=== PATIENT | female | born 1985 | race Caucasian/White ===

== ENCOUNTER 2024-09-19 09:53 | Emergency (ER) | payer OTHER, SELFPAY ==
[2024-09-19 10:04] VITALS: BP 124/93
[2024-09-19 10:50] VITALS: BP 151/86
[2024-09-19 11:00] VITALS: BP 147/90
[2024-09-19 11:22] LABS: HCG, Serum Qualitative Screen Negative
--- NOTE | 2024-09-19 11:23 | ED.GENMED ---
History of Present Illness
General
Chief Complaint: Abdominal Pain
Source: patient and spouse
Exam Limitations: none
Time Seen by Provider: 09/19/24 10:38
Nursing documentation reviewed up to this point in time: agreed with
History of Present Illness
History of Present Illness:
39-year-old female with a past medical history of hypertension, hyperlipidemia, GERD, prior surgical history of hysterectomy who presents to the emergency department for evaluation of abdominal pain. Patient reports symptoms started yesterday
evening and they have been constant since that time. She reports crampy pain in the lower abdomen that is consistent, somewhat worse on the left side. She reports associated diarrhea. She says that this morning had some episodes of bright red
blood per rectum. She has mild nausea no vomiting. No fever. She denies UTI symptoms. She is status post hysterectomy no vaginal bleeding. She says that last night when she was on the toilet and passing large liquid stool she had an episode of
lightheadedness associate with clamminess. No chest pain or shortness of breath, palpitations. No lightheadedness here in the ER. She denies having had similar symptoms the past.
Review of Systems
Review of Systems
All Other Systems: ROS reviewed and negative except as documented in HPI and ROS
Constitutional: Denies fever or fatigue
Respiratory: Denies trouble breathing
Cardiac: Denies chest pain or palpitations
ABD/GI: Reports abdominal pain, nausea, diarrhea and bloody stools; Denies vomiting
: Denies dysuria or flank pain
Musculoskeletal: Denies neck pain or back pain
Neurological: Denies headache
Phy Exam
Physical Exam
Physical Exam:
General: Awake, alert, oriented x3; no acute distress
Head: Normocephalic, atraumatic
Eyes: Conjunctiva normal, sclera anicteric
Throat: Airway intact, handling secretions
Neck: Trachea midline, supple without meningismus
Lungs: Clear to auscultation bilaterally, no wheezing, rales, rhonchi
Heart: Regular rate and rhythm, no murmurs, gallops, or rubs
Abd: Soft, non distended, tender to palpation left lower quadrant
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
Back: No CVA tenderness
Neuro: No gross deficits
Extremities: Well-perfused
Scores
Heart Failure Risk
Heart Failure Risk Score: Not Applicable
Heart Score for Chest Pain Patients
STEMI patient?: Not applicable
Withdrawal Assessment of Alcohol
Withdrawal Assessment Completed?: Not applicable
Course
Orders/Labs/Results
Orders:
Orders
09/19/24 10:44
Electrocardiogram (*1) Urgent
Reason for Study: Syncope
EKG- Treatment ONCE
Test Result ONCE
09/19/24 10:59
Complete Blood Count/With Diff Urgent
Comprehensive Metabolic Panel Urgent
HCG, Serum Qualitative Screen Urgent
09/19/24 11:19
CT Abd/pelvis W Iv Cont Urgent
Comment:
Reason For Exam: LLQ abd pain, tenderness
09/19/24 14:06
Amoxicillin 875 mg/Clav 125 mg [Augmentin 875 mg/125 mg] 1 tablet PO NOW STA
Abnormal Lab Results
09/19/24
10:59
WBC 13.3 H 10^3/uL
(4.8-10.8)
MCHC 32.3 L g/dL
(33.0-37.0)
Abs Immat Gran (auto) 0.1 H 10^3/uL
(0-0.05)
Absolute Neuts (auto) 10.6 H 10^3/uL
(1.4-6.5)
Neutrophils % 79.6 H %
(42.2-75.2)
Lymphocytes % 15.4 L %
(20.5-51.1)
Glucose 108 H mg/dl
(70-99)
09/19/24 10:59
09/19/24 10:59
Vital Signs
Initial and Last Documented VS:
Initial Vital Signs
Temp Pulse Resp BP Pulse Ox
36.9 C 63 18 124/93 100
09/19/24 10:04 09/19/24 10:04 09/19/24 10:04 09/19/24 10:04 09/19/24 10:04
Last Documented Vital Signs
Temp Pulse Resp BP Pulse Ox
36.9 C 72 16 138/90 99
09/19/24 10:04 09/19/24 13:55 09/19/24 13:55 09/19/24 14:00 09/19/24 14:00
MDM/Problems Addressed
Differential Diagnosis Includes:
Diverticulitis, colitis, constipation, stercoral colitis/fecal impaction, nephrolithiasis
MDM/Problems Addressed:
39-year-old female presents for evaluation of left lower quadrant pain associate with diarrhea and a few episodes of bloody mucus per rectum as well. She did have presyncopal event while passing stool last night. Vitals normal. Exam as above.
Will place an IV send labs including a CBC and a CMP. Will check CT abdomen pelvis. Send urinalysis. Provide fluids. Offered pain control patient declined. Monitor and reassess after the above.
Labs reviewed: CBC shows leukocytosis to 13.3, normal hemoglobin. CMP no clinically significant abnormalities. hCG negative. CT abdomen pelvis shows 2 left-sided ovarian cyst but no other acute pathology�unlikely is account for her acute symptoms
as primary complaint is crampy pain with diarrhea. Could be early diverticulitis especially with leukocytosis. I think it would be reasonable to cover with antibiotics given pain and tenderness in the left lower quadrant with leukocytosis. No
clear indication for hospital admission at this point in time. She feels comfortable with this plan. Spoke about return precautions all questions answered.
*Radiology
Radiology exam reviewed: radiology read reviewed
*Pulse Oximetry
Patient hypoxic: no
*Critical Care Note
Total Time (30-74mins, 75-104mins- exclusive of procedures): Not Applicable
Data Reviewed
Source: patient and significant other
ED Attending Note
-
Portions of this chart may have been created with voice recognition software.� Occasional wrong word or��sound alike� substitutions may have occurred due to the inherent limitations of voice recognition software.
Discharge Plan
Departure
Patient Disposition: Home (Routine Discharge)
Date of Disposition: 09/19/24
Time of Disposition: 14:06
Patient with high blood pressure during this ER visit?: No
Discharge Problem:
Abdominal pain
Instructions: Diverticulitis (DC), Abdominal Pain
Prescriptions:
New
amoxicillin-pot clavulanate 875-125 mg tablet
1 tab PO BID 7 Days Qty: 14 0RF
No Action
pantoprazole 40 mg tablet,delayed release (DR/EC)
40 mg PO DAILY
lisinopril 5 mg tablet
5 mg PO DAILY
Referrals:
UNKNOWN - PT DOES,NOT KNOW [Family Provider] -
Activity Restrictions/Additional Instructions:
Thank you for visiting the Emergency Department at [facility].
1. Please schedule a follow up appointment as directed. Call first thing tomorrow morning to make an appointment.
2. If indicated, please take your medications as instructed and indicated on discharge paperwork.
3. If any of your symptoms do not improve, or persist, or become more severe within 6-12 hours, please return to the emergency department for further care.
4. Please return to the emergency department if you develop a headache, neck pain/stiffness, fever greater than 100.4F, chest pain, shortness of breath, persistent nausea, vomiting, slurred speech, difficulty walking, numbness/tingling, weakness,
signs of infection or any other symptoms that are worrisome to you.
Please call [phone] if you have any questions.
Interventions
Interventions:
*Risk Screen - Suicide Last Done: 09/19/24 10:04
*General Assessment Last Done: 09/19/24 10:04
*Neglect/Abuse Screening Last Done: 09/19/24 10:04
*ED COVID-19 Vaccine History Last Done: 09/19/24 11:06
YD-Xtvfbo-Leupujcskd Assessment Last Done: 09/19/24 11:05
Discharge Date and Time
Print Language: MOSOT[place]
[2024-09-19 11:26] LABS: % Basophils 0.2 % (0-2); % Eosinophils 0.5 % (0-6); % Immature Granulocytes 0.5 % (0-0.5); % Lymphocytes 15.4 % (20.5-51.1); % Monocytes 3.8 % (1.7-9.3); % Neutrophils 79.6 % (42.2-75.2); ALT (SGPT) 20 U/L (0-35); AST (SGOT) 19 U/L (14-36); Absolute Eosinophils 0.1 10^3/uL (0-0.7); Absolute Immature Granulocytes 0.1 10^3/uL (0-0.05); Absolute Monocytes 0.5 10^3/uL (0.1-0.6); Absolute Neutrophils 10.6 10^3/uL (1.4-6.5); Albumin 4.4 g/dl (3.5-5.0); Alkaline Phosphatase 76 U/L (38-126); Blood Urea Nitrogen 11 mg/dl (7-17); Calcium 9.3 mg/dl (8.4-10.2); Carbon Dioxide 22 mmol/L (22-30); Chloride 105 mmol/L (98-107); Glucose 108 mg/dl (70-99); Hematocrit 40.5 % (37.0-47.0); Hemoglobin 13.1 g/dL (12.0-16.0); Mean Corp Hgb Conc. 32.3 g/dL (33.0-37.0); Mean Corpuscular Hgb 28.2 pg (27.0-31.0); Mean Corpuscular Volume 87.1 fL (81.0-99.0); Mean Platelet Volume 9.9 fL (7.4-10.4); Nucleated Red Blood Cells % 0 %; Platelet Count 298 10^3/uL (130-400); Potassium 4.3 mmol/L (3.5-5.1); Red Blood Cell Count 4.65 10^6/uL (4.20-5.40); Red Cell Dist. Width 12.8 % (11.5-14.5); Sodium 141 mmol/L (135-145); Total Bilirubin 0.4 mg/dl (0.2-1.3); Total Protein 7.7 g/dl (6.3-8.2); White Blood Cell Count 13.3 10^3/uL (4.8-10.8); eGFR > 60.00
[2024-09-19 13:51] VITALS: BP 142/88
[2024-09-19 14:00] VITALS: BP 138/90
[2024-09-19] MEDS: AUGMENTIN 875 MG/125 MG 1 TABLET PO (14:14)
== END 2024-09-19 14:20 | disposition home or self-care (01) ==
LOC: EMR 09:53
PROVIDERS: EMERGENCY PHYSICIAN Emergency Medicine
DX: R10.32 Left lower quadrant pain (principal); D72.829 Elevated white blood cell count, unspecified; N83.202 Unspecified ovarian cyst, left side; I10 Essential (primary) hypertension; E78.5 Hyperlipidemia, unspecified; K21.9 Gastro-esophageal reflux disease without esophagitis; Z90.710 Acquired absence of both cervix and uterus
CPT/HCPCS: 99284; 74177; 80053; 84703; 85025; 93005; Q9967